=== PATIENT | female | born 1995 | race Two or more races ===

== ENCOUNTER 2019-08-09 18:04 | Emergency (ER) | payer OTHER ==
--- NOTE | 2019-08-09 18:49 | ED Physician Documentation ---
History of Present Illness - Stated complaint Stated Complaint: FEVER,PAIN - Chief complaint Chief Complaint: Fever - History obtained from History obtained from: Patient - History of Present Illness Timing: Other (She been sick for a week. It started with 3 days of profound fatigue and myalgias subsequently developed productive cough and fever up to 103.9 with body aches and chills. She is not short of breath. She denies upper respiratory complaints. No abdominal pain or urinary symptoms. No recent travel.) Review of Systems Ten Systems: 10 systems reviewed and negative Constitutional: reports: Fever, Chills, Myalgias, Fatigue Nose: denies: Rhinorrhea / runny nose, Congestion PD PAST MEDICAL HISTORY - Present Medications Home Medications: Ambulatory Orders Medication Instructions Recorded Confirmed Cefpodoxime Proxetil 200 mg PO BID #20 tablet 08/09/19 - Allergies Allergies/Adverse Reactions: Allergies Allergy/AdvReac Type Severity Reaction Status Date / Time No Known Drug Allergies Allergy Verified 08/09/19 18:16 PD ED PE NORMAL - Vitals Vital signs reviewed: Yes - General General: Alert and oriented X 3, No acute distress - HEENT HEENT: PERRL, Ears normal, Pharynx benign - Neck Neck: Supple, no meningeal sign, No bony TTP - Cardiac Cardiac: RRR, No murmur - Respiratory Respiratory: No respiratory distress, Clear bilaterally - Abdomen Abdomen: Normal bowel sounds, Soft, Non tender - Back Back: No CVA TTP, No spinal TTP - Derm Derm: Normal color, Warm and dry - Extremities Extremities: No edema, No calf tenderness / cord - Neuro Neuro: Alert and oriented X 3, Normal speech Results - Vitals Vitals: Vital Signs - 24 hr 08/09/19 18:12 Temperature 37.4 C Heart Rate 117 H Respiratory 18 Rate Blood Pressure 116/76 O2 Saturation 98 Oxygen O2 Source Room air - Labs Labs: Laboratory Tests 08/09/19 19:30 Urine Color YELLOW Urine Clarity CLOUDY Urine pH 6.0 Ur Specific [place] 1.010 Urine Protein 30 H Urine Glucose (UA) NEGATIVE Urine Ketones 40 H Urine Occult Blood LARGE H Urine Nitrite POSITIVE H Urine Bilirubin NEGATIVE Urine Urobilinogen 1 (NORMAL) Ur Leukocyte Esterase MODERATE H Urine RBC 11-25 H Urine WBC >25 H Ur Squamous Epith Cells FEW Squamous Urine Bacteria Many H Ur Microscopic Review INDICATED Urine Culture Comments INDICATED Urine HCG, Qual NEGATIVE PD MEDICAL DECISION MAKING - ED course ED course: This young woman flulike illness, but found to have pyelonephritis and work-up treated with a third generation oral cephalosporin. Departure - Departure Disposition: 01 Home, Self Care Clinical Impression: Pyelonephritis Condition: Good Record reviewed to determine appropriate education?: Yes Instructions: Pyelonephritis Dc Prescriptions: Cefpodoxime Proxetil 200 mg PO BID #20 tablet Comments: We will culture your urine, the results should be done in 48-72 hours. If an antibiotic change is necessary we will call you. Return if worse in the meantime, especially if you develop increasing flank pain, or cannot keep down the medication. Ibuprofen as needed for pain, drink plenty fluids. Call your doctor to arrange a follow-up appointment, make the next available appointment. In the interim, return anytime if worse or if new symptoms develop.
[2019-08-09 19:39] LABS: GLUCOSE, URINE (UA) NEGATIVE (NEGATIVE); KETONES,URINE (UA) 40 mg/dL (NEGATIVE); LEUKOCYTE ESTERASE, URINE MODERATE (NEGATIVE); NITRITE,URINE POSITIVE (NEGATIVE); OCCULT BLOOD,URINE LARGE (NEGATIVE); PROTEIN,URINE 30 mg/dL (NEGATIVE); UROBILINOGEN,URINE 1 (NORMAL) E.U./dL (NORMAL)
[2019-08-09 19:44] LABS: BILIRUBIN,URINE NEGATIVE (NEGATIVE); CLARITY,URINE CLOUDY (CLEAR); HCG UR QUAL NEGATIVE; ICTOTEST,URINE NEGATIVE
[2019-08-09 19:54] LABS: BACTERIA,URINE Many /HPF (None Seen); SQUAMOUS EPITHELIAL CELL,UR FEW Squamous (<= Few)
--- NOTE | 2019-08-09 19:55 | XRAY Report ---
Reason: cough fever Procedure Date: 08/09/2019 Accession Number: [id number] / [id number] Procedure: XR - Chest 2 View X-Ray CPT Code: 73381 FULL RESULT: EXAM: CHEST RADIOGRAPHY EXAM DATE: 08/09/2019 07:16 PM. CLINICAL HISTORY: Cough fever. COMPARISON: None. TECHNIQUE: 2 views. FINDINGS: LUNGS: The lungs are clear. PLEURA: No significant pleural effusion. No clinically significant pneumothorax. MEDIASTINUM: The cardiomediastinal silhouette is unremarkable. BONES: No suspicious osseous lesions. There appears to be a pectus excavatum deformity of the anterior chest wall. IMPRESSION: No acute cardiopulmonary abnormality. RADIA
[2019-08-09] MEDS ORDERED: CEFPODOXIME PROXETIL 100 MG TABLET PO STA (20:05)
[2019-08-09 20:24] VITALS: BP 110/62
== END 2019-08-09 20:23 | disposition home or self-care (01) ==
LOC: ED 18:04
DX: N12 Tubulo-interstitial nephritis, not specified as acute or chronic (principal)
CPT/HCPCS: 71046; 81001; 81025; 87086; 87181; 99283; A9270; 81003

== ENCOUNTER 2020-01-10 10:09 | Outpatient (CLI) | payer OTHER | END 2020-01-10 23:59 | disposition critical access hospital (66) | LOC: EMS 10:09 | PROVIDERS: ATTEND Surgery | DX: M25.512 Pain in left shoulder (principal); V49.40XA Driver injured in collision with unspecified motor vehicles in traffic accident, initial encounter; Y92.414 Local residential or business street as the place of occurrence of the external cause | CPT/HCPCS: A0425; A0429 ==

== ENCOUNTER 2020-01-10 10:35 | Emergency (ER) | payer OTHER ==
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
[2020-01-10] MEDS ORDERED: IBUPROFEN 600 MG TABLET PO STA (11:25)
[2020-01-10] MEDS ORDERED: methocarbamoL 500 MG TABLET PO STA (11:25)
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
[2020-01-10 13:52] VITALS: BP 122/81
[2020-01-10] MEDS ORDERED: ACETAMINOPHEN 325 MG TABLET PO STA (14:09)
== END 2020-01-10 14:16 | disposition home or self-care (01) ==
LOC: EDBD → EDUNIT# → ED 10:35
DX: S29.012A Strain of muscle and tendon of back wall of thorax, initial encounter (principal); S16.1XXA Strain of muscle, fascia and tendon at neck level, initial encounter; V43.52XA Car driver injured in collision with other type car in traffic accident, initial encounter; Y92.410 Unspecified street and highway as the place of occurrence of the external cause; Z87.891 Personal history of nicotine dependence
CPT/HCPCS: 72125; 72128; 99284; A9270

== ENCOUNTER 2021-03-06 17:46 | Emergency (ER) | payer OTHER ==
--- OUTSIDE RECORDS SUMMARY | 2021-03-06 18:18 | EXTERNAL MEDICAL SUMMARY RPT | Continuity of Care Document ---
:1995 Demographics Phone Unavailable Preferred Language Unknown Marital Status Unknown L[employer] Day Affiliation Unknown Race Unknown Ethnic Group Unknown Author Organization [facility] Address [address] [place] [address] Phone Social History date description facility [id number]
[2021-03-06] MEDS ORDERED: methocarbamoL 500 MG TABLET PO STA (18:38)
[2021-03-06] MEDS ORDERED: oxyCODONE 5 MG TABLET PO STA (18:38)
--- NOTE | 2021-03-06 18:39 | ED Physician Documentation ---
History of Present Illness - Stated complaint Stated Complaint: neck px - Chief complaint Chief Complaint: General - History obtained from History obtained from: Patient - History of Present Illness Timing: Today Pain level max: 8 Pain level now: 8 - Additonal information Additional information: 26-year-old female who presents to the emergency department with left-sided neck pain that started this morning and is gradually worsened throughout the day. She states she is unable to turn her head now. Took Flexeril and Motrin without relief. Patient states that this is happened in the past. She states this normally occurs when she sleeps wrong. No fevers. No chills. No trauma. No recent antibiotics. 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 - Present Medications Home Medications: Ambulatory Orders Medication Instructions Recorded Confirmed Cefpodoxime Proxetil 200 mg PO BID #20 tablet 08/09/19 Cyclobenzaprine [Flexeril] 01/10/20 Oxycodone HCl/Acetaminophen 1 - 2 each PO Q6H PRN #14 tablet 03/06/21 [Percocet 5-325 mg Tablet] methocarbamoL [Robaxin] 500 mg PO Q6H PRN #20 tablet 03/06/21 - Allergies Allergies/Adverse Reactions: Allergies Allergy/AdvReac Type Severity Reaction Status Date / Time No Known Drug Allergies Allergy Verified 03/06/21 18:00 - Social History Does the pt smoke?: Yes Smoking Status: Current every day smoker Does the pt have substance abuse?: No - Immunizations Immunizations are current?: Yes PD ED PE NORMAL - Vitals Vital signs reviewed: Yes - General General: Alert and oriented X 3, No acute distress - HEENT HEENT: PERRL, EOMI, Moist mucous membranes, Pharynx benign - Neck Neck: Supple, no meningeal sign, No bony TTP, No JVD, No bruit, Other (No midline tenderness to palpation or percussion. Paraspinal spasm left paracervical) - Cardiac Cardiac: RRR - Respiratory Respiratory: No respiratory distress, Clear bilaterally - Derm Derm: Warm and dry - Neuro Neuro: Alert and oriented X 3, pond sawyer 2-12 intact, No motor deficit, No sensory deficit, Normal speech Eye Opening: Spontaneous Motor: Obeys Commands Verbal: Oriented GCS Score: 15 - Psych Psych: Normal mood, Normal affect Results - Vitals Vitals: Vital Signs - 24 hr 03/06/21 03/06/21 03/06/21 17:58 19:10 19:28 Temperature 36.2 C L 37.3 C Heart Rate 85 61 81 Respiratory 16 17 20 Rate Blood Pressure 133/81 H 139/69 H 117/78 O2 Saturation 99 99 95 03/06/21 03/06/21 19:33 19:41 Temperature Heart Rate Respiratory 15 15 Rate Blood Pressure O2 Saturation Oxygen O2 Source Room air PD MEDICAL DECISION MAKING - ED course Complexity details: re-evaluated patient, considered differential, d/w patient ED course: 26-year-old female with left-sided neck spasm. Given oxycodone and Robaxin. Feels better and is moving her neck better. Will prescribe this for home. No evidence of meningitis, encephalitis, subarachnoid hemorrhage. No evidence of carotid dissection. Or vertebral artery dissection. Patient counseled regarding signs and symptoms for which I believe and urgent re-evaluation would be necessary. Patient with good understanding of and agreement to plan and is comfortable going home at this time This document was made in part using voice recognition software. While efforts are made to proofread this document, sound alike and grammatical errors may occur. Departure - Departure Disposition: Home, Self Care Clinical Impression: Neck muscle spasm Condition: Good Instructions: ED Spasm Neck No Injury Follow-Up: Aron Ortiz MD [Primary Care Provider] - Within 1 week Prescriptions: Oxycodone HCl/Acetaminophen [Percocet 5-325 mg Tablet] 1 - 2 each PO Q6H PRN #14 tablet PRN Reason: pain methocarbamoL [Robaxin] 500 mg PO Q6H PRN #20 tablet PRN Reason: muscle spasm Comments: Follow-up with your doctor for further care. Continue to gently stretch your neck at home. Heating pad may help as well. Do not drink alcohol or drive while on narcotic pain medicine. Note that many narcotic pain relievers also contain tylenol/acetaminophen. Please ensure that your total dose of acetaminophen from all sources does not exceed 3 grams (3000mg) per day. You may constipated on this medication, take a stool softener such as "Colace" twice a day while you are on it. Also recommend a [id number]-[id number] laxative such as senna or MiraLAX any day that you do not have a bowel movement. If you received narcotic pain medication in the emergency department, do not drive or operate machinery for the next 24 hours. Discharge Date/Time: 03/06/21 19:47
[2021-03-06 19:28] VITALS: BP 117/78
== END 2021-03-06 19:47 | disposition home or self-care (01) ==
LOC: ED 17:46
DX: M62.838 Other muscle spasm (principal); F17.200 Nicotine dependence, unspecified, uncomplicated
CPT/HCPCS: 99282; 99284; A9270